=== PATIENT | female | born 1960 | race Caucasian/White ===

== ENCOUNTER 2025-07-27 18:30 | Inpatient (IN) | payer MEDICARE, OTHER ==
[2025-07-27 20:12] LABS: BASOPHILS ABSOLUTE AUTO 0.04 K/uL (0.00-0.10); BASOPHILS PERCENT AUTO 0.4 % (0.1-1.3); EOSINOPHILS ABSOLUTE AUTO 0.08 K/uL (0.00-0.40); EOSINOPHILS PERCENT AUTO 0.7 % (0.0-5.4); IMMATURE GRAN ABSOLUTE AUTO 0.03 K/uL (0.00-0.23); IMMATURE GRAN PERCENT AUTO 0.3 % (0.0-0.7); LYMPHOCYTES ABSOLUTE AUTO 2.38 K/uL (0.8-3.3); LYMPHOCYTES PERCENT AUTO 21.3 % (11.4-47.7); MONOCYTES ABSOLUTE AUTO 1.17 K/uL (0.20-0.90); MONOCYTES PERCENT AUTO 10.5 % (3.3-12.6); NEUTROPHILS ABSOLUTE AUTO 7.48 K/uL (1.0-7.6); NEUTROPHILS PERCENT AUTO 66.8 % (40.0-78.1); PLATELET COUNT,PLT 244 K/uL (130-375); RED BLOOD CELL COUNT 4.14 M/uL (3.77-5.24); WHITE BLOOD CELL COUNT,WBC 11.2 K/uL (3.2-11.0)
[2025-07-27 20:33] LABS: A/G RATIO 1.1 (1.2-2.2); ALANINE AMINOTRANSFERASE,ALT 33 U/L (12-78); ASPARTATE AMNIOTRANSFERASE,AST 14 U/L (15-37); BILIRUBIN TOTAL 1.0 mg/dL (0.2-1.0); BLOOD UREA NITROGEN,BUN 15 mg/dL (7-18); CARBON DIOXIDE,CO2 27 mmol/L (21-32); CHLORIDE,CL 101 mmol/L (100-108); CREATININE 0.5 mg/dL (0.6-1.0); EST CRCL DRUG DOSING (CG) 105.01 mL/min; ESTIMATED GFR 104 mL/min (>60); GLUCOSE RANDOM 105 mg/dL (74-106); POTASSIUM,K 3.0 mmol/L (3.6-5.2); PROTEIN TOTAL,TP 7.8 g/dL (6.4-8.2); SODIUM,NA 139 mmol/L (140-148)
[2025-07-27 21:27] LABS: APPEARANCE,URINE CLEAR (CLEAR); GLUCOSE,URINE NEGATIVE (NEGATIVE); OCCULT BLOOD,URINE MODERATE (NEGATIVE)
[2025-07-27 21:35] LABS: SQUAMOUS EPITHELIAL CELLS,UR RARE /HPF
[2025-07-27] MEDS: Sodium Chloride 0.9% 10 ML Syringe FLUSH ONE (21:51)
[2025-07-27] MEDS: Iopamidol 612 MG/ML 100 ML Bottle IV SCH (21:51)
[2025-07-27] MEDS: Ciprofloxacin in D5W 400 MG in Premix Bag 1 BAG IV SCH (22:46)
[2025-07-28] MEDS ORDERED: Ondansetron 4 MG Tab.DIS PO PRN (00:54)
[2025-07-28] MEDS ORDERED: Ondansetron 4 MG/2 ML SDV IV PRN (00:54)
[2025-07-28] MEDS: Potassium Chloride 20 MEQ Tab.ER PO ONE ×2 (02:19→13:14)
[2025-07-28 05:16] LABS: PLATELET COUNT,PLT 222.0 K/uL (130-375); RED BLOOD CELL COUNT 3.78 M/uL (3.77-5.24); WHITE BLOOD CELL COUNT,WBC 9.2 K/uL (3.2-11.0)
[2025-07-28 05:42] LABS: BLOOD UREA NITROGEN,BUN 10.0 mg/dL (7-18); CARBON DIOXIDE,CO2 27.0 mmol/L (21-32); CHLORIDE,CL 106.0 mmol/L (100-108); CREATININE 0.4 mg/dL (0.6-1.0); EST CRCL DRUG DOSING (CG) 131.98 mL/min; ESTIMATED GFR 110.0 mL/min (>60); GLUCOSE RANDOM 111.0 mg/dL (74-106); POTASSIUM,K 3.1 mmol/L (3.6-5.2); SODIUM,NA 142.0 mmol/L (140-148)
[2025-07-28] MEDS ORDERED: fentaNYL 250 MCG/5 ML SDV ONE (07:22)
[2025-07-28] MEDS ORDERED: Propofol 200 MG/20 ML SDV ONE (07:23)
[2025-07-28] MEDS ORDERED: Glycopyrrolate 0.2 MG/ML 5 ML MDV ONE (07:23)
[2025-07-28] MEDS ORDERED: Dexamethasone 4 MG/ML SDV ONE (07:23)
[2025-07-28] MEDS ORDERED: Ondansetron 4 MG/2 ML SDV ONE (07:23)
[2025-07-28] MEDS ORDERED: Potassium Chloride 20 MEQ in Premix Bag 1 BAG IV ONE (07:59)
[2025-07-28] MEDS ORDERED: LEVOTHYROXINE SODIUM 137 MCG PO SCH (09:00)
[2025-07-28] MEDS ORDERED: Succinylcholine 200 MG/10 ML MDV ONE (09:02)
[2025-07-28] MEDS: metroNIDAZOLE/Normal Saline 500 MG in Premix Bag 1 BAG IV SCH (09:40)
[2025-07-28] MEDS: Bupivacaine 0.25%/EPINEPHrine 1:200,000 30 ML SDV ONE (09:50)
[2025-07-28] MEDS ORDERED: Lactated Ringers 1,000 ML ONE (10:24)
[2025-07-28] MEDS ORDERED: Ketorolac 30 MG/ML SDV ONE (10:29)
[2025-07-28] MEDS: Ciprofloxacin in D5W 400 MG in Premix Bag 1 BAG IV SCH ×2 (11:30→23:33)
[2025-07-28] MEDS: Lactobacillus Rhamnosus GG (Probiotic) Cap PO SCH (13:16)
[2025-07-28] MEDS: Potassium Chloride 20 MEQ Tab.ER ONE (13:22)
== END 2025-07-29 12:52 | disposition home or self-care (01) | DRG 399 ==
LOC: JP.ED 18:30 → JP.MS 23:10
PROVIDERS: ADMIT Registered Nurse; ATTEND Student in an Organized Health Care Education/Training Program
PROC: 3E03329 Introduction of Other Anti-infective into Peripheral Vein, Percutaneous Approach (ICD-10-PCS; 2025-07-27)
PROC: 0DTJ4ZZ Resection of Appendix, Percutaneous Endoscopic Approach (ICD-10-PCS; principal; 2025-07-28 09:30)
DX: K35.32 Acute appendicitis with perforation, localized peritonitis, and gangrene, without abscess (principal); H54.7 Unspecified visual loss; K37 Unspecified appendicitis; Z66 Do not resuscitate; I10 Essential (primary) hypertension; Z96.659 Presence of unspecified artificial knee joint; K56.41 Fecal impaction; E87.6 Hypokalemia; K66.0 Peritoneal adhesions (postprocedural) (postinfection); E03.9 Hypothyroidism, unspecified; Z90.89 Acquired absence of other organs; Z90.710 Acquired absence of both cervix and uterus; Z87.891 Personal history of nicotine dependence; Z90.721 Acquired absence of ovaries, unilateral; Z88.0 Allergy status to penicillin; Z88.2 Allergy status to sulfonamides; Z88.5 Allergy status to narcotic agent; Z79.890 Hormone replacement therapy; Z79.899 Other long term (current) drug therapy
CPT/HCPCS: 36415; 74177; 80053; 81001; 83690; 85025; 86140; 96361; 96365; 96368; 99284; 99285; J0696; J0744; J7030; Q9967; 00840-QZ; 80048; 85027; 99223; A9270-GY; J0330; J1100; J1596; J1836; J1885; J2405; J2470; J2704; J2710; J3010; J3480; J3490; J7120